=== PATIENT | male | born 1995 | race American Indian/Alaskan Native ===

== ENCOUNTER 2022-01-27 06:22 | Emergency (ER) | payer OTHER ==
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
[2022-01-27 09:06] VITALS: BP 142/87
== END 2022-01-27 09:57 | disposition left against medical advice (07) ==
LOC: ED 06:22
DX: V89.2XXA Person injured in unspecified motor-vehicle accident, traffic, initial encounter; Y93.89 Activity, other specified; Y92.89 Other specified places as the place of occurrence of the external cause; Y99.8 Other external cause status
CPT/HCPCS: 99283